=== PATIENT | female | born 1965 | race Caucasian/White ===

== ENCOUNTER 2016-09-09 06:13 | Day surgery (SDC) | payer MEDICAID ==
[~2016-09-09] VITALS: Ht 160 cm; Wt 141.8 kg
--- NOTE | ~2016-09-09 | OP ---
PATIENT NAME: YAMILE KWONG MEDICAL RECORD: [id number] :61 LOCATION:[facility] ADMISSION DATE: SURGEON: EVETTE HOROWITZ DO DATE OF OPERATION: 09/09/2016 PROCEDURE: EGD with biopsies. INDICATION: Nausea and vomiting, heartburn, chronic cough. SCOPE: [employer] video gastroscope. MEDICATIONS: Propofol 380 mg IV per anesthesia. ESTIMATED BLOOD LOSS: Less than 2 mL. COMPLICATIONS: None. FINDINGS: Informed consent was given. The patient was made comfortable with the above medication. After reaching an adequate level of sedation by slow IV push, the patient was placed on her left side. The endoscope was then advanced under direct visualization through the mouth to the second portion of the duodenum. The upper, middle, and lower thirds of the esophagus appeared normal. At the GE junction, there was evidence of LA class A reflux induced esophagitis with a few minor breaks in the mucosa. There was one site where the mucosa was nodular or polypoid-like. This was removed with cold forceps to submit for histology. The endoscope was advanced beyond the GE junction into the stomach and retroflexed to view the cardia, where diminutive sliding hiatal hernia was present. The fundus and body of the stomach appeared normal. In the antrum, there was some erythema and granularity consistent with possible gastritis. Biopsies were taken to submit for histology and to rule out H. pylori. There were few scattered benign appearing fundic gland type polyps present in the fundus and body of the stomach. The endoscope was advanced beyond the pylorus into the duodenum where there was some atrophy of the villous surface in both the bulb and second portion of the duodenum. Random biopsies were taken to submit for histology. The scope was then withdrawn from the patient. The patient tolerated the procedure well and there were no complications. IMPRESSION: 1. LA class A reflux induced esophagitis with a single site that was polypoid-like, biopsies taken. 2. Diminutive sliding hiatal hernia. 3. Erythema and granularity in the antrum and prepyloric region of the stomach consistent with possible gastritis, biopsies taken. 4. Benign appearing fundic gland type polyps. 5. Atrophy of the duodenal villi. Biopsies were taken of these sites. PLAN AND RECOMMENDATIONS: 1. Discharge home when recovery parameters are met. 2. Continue current medications. 3. Continue current diet. 4. Gastric emptying study regarding the nausea and vomiting. 5. Await biopsy results. 6. Further recommendations pending results of gastric emptying study and biopsy results. OPERATIVE REPORT [id number] YAMILE KWONG TRANSINT:[id number] Voice Confirmation ID: [id number] DOCUMENT ID: [id number] EVETTE HOROWITZ DO CC: [id number] DICTATION DATE: 09/09/16827 HORSE TRAINER: 09/09/16 1227 [facility] [address] [id number]
[2016-09-09] MEDS ORDERED: COZAAR100 MG PO (06:41)
[2016-09-09] MEDS ORDERED: COREG12.5 MG PO (06:41)
[2016-09-09] MEDS ORDERED: BAYER CHEWABLE81 MG PO (06:41)
[2016-09-09] MEDS ORDERED: ALDACTONE25 MG PO (06:42)
[2016-09-09] MEDS ORDERED: TORSEMIDE20 MG PO (06:42)
[2016-09-09] MEDS ORDERED: METOLAZONE5 MG PO (06:43)
[2016-09-09] MEDS ORDERED: GLIPIZIDE10 MG PO (06:43)
[2016-09-09] MEDS ORDERED: LEVEMIR100 U/M1 SC (06:44)
[2016-09-09] MEDS ORDERED: NOVOLOG100 U/M1 SC (06:45)
[2016-09-09] MEDS ORDERED: NATURE-THROID32.4 MG PO (06:47)
[2016-09-09 06:49] LABS: HEMATOCRIT 35.5 % (36.0-48.0); HEMOGLOBIN 11.2 g/dL (12-16); MCH 27.1 pg (26.0-34.0); MCHC 31.5 g/dL (31.0-37.0); MCV 85.7 fL (80.0-100.0); MEAN PLATELET VOLUME 9.8 fL (7.4-10.4); RBC 4.14 10x6/uL (4.00-5.40); RDW 15.3 % (11.5-14.5); WBC 10.2 10x3/uL (4.8-10.8)
[2016-09-09 06:57] VITALS: BP 111/50; Ht 160 cm; Wt 141.8 kg
--- NOTE | 2016-09-09 16:18 | NUR ---
0845 COUGHING. SERVED ICE CHIPS. José Miguel FRANCO R.N.
--- NOTE | 2016-09-09 16:22 | NUR ---
1030 DRESSED AWKAE & ALERT. GIVEN DISCHARGE INFORMATION INCLUDING: MED REC., SHEET LISTING NSAIDS & BLOOD THINNERS TO AVOID, D/C INSTRUCTION SHEET POST ENDOSCOPIC PROCEDURES,& REFLUX ESOPHAGITIS HANDOUT. PT VOICED UNDERSTANDING. TO PRIVATE CAR PER WHEELCHAIR BY VOLUNTEER. HOME WITH , AVTAR KWONG. José Miguel FRANCO R.N.
== END 2016-09-09 10:30 | disposition home or self-care (01) ==
LOC: D.OPS 06:13
PROVIDERS: Anesthesiology
DX: K21.0 Gastro-esophageal reflux disease with esophagitis (principal); K44.9 Diaphragmatic hernia without obstruction or gangrene; G47.30 Sleep apnea, unspecified; I10 Essential (primary) hypertension; I11.0 Hypertensive heart disease with heart failure; I50.9 Heart failure, unspecified; E11.9 Type 2 diabetes mellitus without complications; E66.01 Morbid (severe) obesity due to excess calories; Z68.43 Body mass index [BMI] 50.0-59.9, adult; Z01.812 Encounter for preprocedural laboratory examination

== ENCOUNTER → 2016-09-13 10:58 | Outpatient (CLI) | payer MEDICAID ==
[2016-09-09 06:57] VITALS: BMI 55.3
[~2016-09-13 10:58] MED LIST: ALDACTONE25 MG PO; BAYER CHEWABLE81 MG PO; COREG12.5 MG PO; COZAAR100 MG PO; GLIPIZIDE10 MG PO; LEVEMIR100 U/M1 SC; METOLAZONE5 MG PO; NATURE-THROID32.4 MG PO; NOVOLOG100 U/M1 SC; TORSEMIDE20 MG PO
== END | disposition home or self-care (01) ==
LOC: D.NM 10:58
DX: R11.2 Nausea with vomiting, unspecified (principal); R14.0 Abdominal distension (gaseous); R68.81 Early satiety

== ENCOUNTER 2016-10-21 05:17 | Day surgery (SDC) | payer MEDICAID ==
[~2016-10-21] VITALS: Ht 160 cm; Wt 142.3 kg
[2016-10-21 06:19] LABS: HEMATOCRIT 32.2 % (36.0-48.0); HEMOGLOBIN 10.2 g/dL (12-16); MCH 27.3 pg (26.0-34.0); MCHC 31.7 g/dL (31.0-37.0); MCV 86.3 fL (80.0-100.0); MEAN PLATELET VOLUME 9.5 fL (7.4-10.4); RBC 3.73 10x6/uL (4.00-5.40); RDW 15.9 % (11.5-14.5); WBC 10.3 10x3/uL (4.8-10.8)
[2016-10-21 06:40] VITALS: BP 121/56; Ht 160 cm; Wt 142.3 kg
[2016-10-21 06:43] LABS: ANION GAP 12.8 mmol/L (8-16); CALCIUM 8.1 mg/dL (8.5-10.1); CARBON DIOXIDE 28.6 mmol/L (21.0-32.0); POTASSIUM - SERUM 3.4 mmol/L (3.5-5.1)
--- NOTE | 2016-10-21 15:50 | OP ---
PATIENT NAME: YAMILE KWONG MEDICAL RECORD: [id number] :61 LOCATION:[facility] ADMISSION DATE: SURGEON: EVETTE HOROWITZ DO DATE OF OPERATION: 10/21/2016 PROCEDURE: Colonoscopy with polypectomy. INDICATIONS FOR PROCEDURE: Screening colonoscopy. SCOPE: Olympus video pediatric colonoscope. MEDICATIONS: Propofol 440 mg IV per anesthesia. WITHDRAWAL TIME: 12 minutes. ESTIMATED BLOOD LOSS: Minimal. COMPLICATIONS: None. FINDINGS: Informed consent was given. The patient was made comfortable with the above medication. After reaching an adequate level of sedation by slow IV push, the patient was placed on her left side. A digital rectal examination was performed and was normal. The endoscope was then advanced under direct visualization through the rectum to the terminal ileum. The scope was slowly withdrawn and mucosa was carefully examined. The prep was good. There were 2 polyps identified on this examination. The first was in the descending colon. It was a benign appearing sessile polyp measuring approximately 5 mm in diameter. It was removed using hot forcep in 1 piece and retrieved. The second polyp was located in the sigmoid colon and measured approximately 5 mm in diameter. It was benign appearing and sessile. It was removed using a hot forceps in 1 piece and completely retrieved. Retroflexion was performed in the rectum with visualization of small nonbleeding internal hemorrhoids. The scope was withdrawn from the patient. The patient tolerated the procedure well and there were no complications. IMPRESSION: 1. Two polyps as described above, removed using hot forceps. 2. Small nonbleeding internal hemorrhoids. PLAN AND RECOMMENDATIONS: 1. Discharge home when recovery parameters are met. 2. Follow up biopsy specimen results. 3. High fiber diet. 4. Continue current medications. 5. Recall colonoscopy in 5 years. TRANSINT:[id number] Voice Confirmation ID: [id number] DOCUMENT ID: [id number] OPERATIVE REPORT [id number] YAMILE KWONG EVETTE HOROWITZ DO at 1550 CC: [id number] DICTATION DATE: 10/21/16815 RADIO MECHANIC APPRENTICE: 10/21/16 1247 [facility] 10/21/16 [place] [id number]
== END 2016-10-21 09:05 | disposition home or self-care (01) ==
LOC: D.OPS 05:17
PROVIDERS: Anesthesiology
DX: Z12.11 Encounter for screening for malignant neoplasm of colon (principal); D12.4 Benign neoplasm of descending colon; D12.5 Benign neoplasm of sigmoid colon; K64.8 Other hemorrhoids; J45.909 Unspecified asthma, uncomplicated; I11.0 Hypertensive heart disease with heart failure; I50.9 Heart failure, unspecified; E11.9 Type 2 diabetes mellitus without complications; E03.9 Hypothyroidism, unspecified; G47.30 Sleep apnea, unspecified; K21.9 Gastro-esophageal reflux disease without esophagitis; E66.01 Morbid (severe) obesity due to excess calories; Z68.43 Body mass index [BMI] 50.0-59.9, adult